=== PATIENT | female | born 1980 | race Caucasian/White ===

== ENCOUNTER → 2017-08-07 | Day surgery (SDC) | payer OTHER ==
[~2017-08-07] VITALS: Ht 165.1 cm; Wt 68.0 kg
--- NOTE | 2017-08-07 09:49 | Operative Report ---
Operative/Inv Procedure Report Surgery Date: 08/07/17 Name of Procedure: Cervical cone biopsy Pre-Operative Diagnosis: GRACE-3 Post-Operative Diagnosis: Same Estimated Blood Loss: less than 50ml Surgeon/Bulk Station Agent: Leoncio Bauer MD Anesthesia: moderate sedation IV Fluids: Lactated Ringer's Urine Output: Straight cath 350 mL clear urine at the beginning of the procedure Specimens: Cervical tissue, endocervical tissue Complications: None Condition: Stable Operative Indication: 37 year old, abnormal Pap smear with HPV positive, colposcopy was performed, ECC showed GRACE-3 Operative/Procedure Note Note: The patient was taken to the operating room where moderate sedation was obtained without difficulty. Patient was then examined under anesthesia. She was then placed and into dorsal lithotomy position and prepared and draped in the usual sterile fashion. A rubber bivalve speculum was then placed into the patient's vagina. A loop electrode was used to remove anterior and posterior portion of the cervix, then a small loop electrode was used to remove portion of the endocervical tissue . A rollerball was used to cauterize the bleeding site. Monsel solution was applied to the cervix to achieve excellent hemostasis. All the instruments were withdrawn from the patient's vagina, all the instruments and laps counts were correct. Patient tolerated the procedure well, she was taken to the recovery room in stable condition. Anteverted uterus.
== END ==
LOC: STS 04:35
DX: N87.9 Dysplasia of cervix uteri, unspecified (principal); A63.0 Anogenital (venereal) warts; E03.9 Hypothyroidism, unspecified
CPT/HCPCS: 36415; 81025; J2250